=== PATIENT | male | born 1995 | race Caucasian/White ===

== ENCOUNTER 2018-08-26 15:35 | Emergency (ER) | payer OTHER ==
[~2018-08-26] VITALS: Ht 185.4 cm; Wt 63.9 kg
[2018-08-26 15:37] VITALS: BP 132/63
== END 2018-08-26 16:57 | disposition home or self-care (01) ==
LOC: ED 16:57
DX: G89.18 Other acute postprocedural pain (principal); M25.571 Pain in right ankle and joints of right foot
CPT/HCPCS: 99283